=== PATIENT | male | born 1990 | race Caucasian/White ===

== ENCOUNTER 2024-11-23 13:54 | Emergency (ER) | payer MEDICAID ==
[~2024-11-23] VITALS: Ht 185.4 cm; Wt 90.0 kg
[2024-11-23 13:57] VITALS: O2SAT 99
[2024-11-23] MEDS: BACITRACIN ZINC OINT UDPKT TOP ONE (14:30)
[2024-11-23] MEDS: LIDOCAINE HCL/PF 1% 10 MG/ML 5ML VIAL INFIL ONE (14:30)
[2024-11-23] MEDS: HYDROCODONE/ACETAMINOPHEN 10/325MG TABLET PO ONE (14:38)
[2024-11-23] MEDS: TETANUS, DIPHTHERIA, PERTUSSIS VAC/PF 0.5ML (>10YR OLD) IM ONE (14:38)
[2024-11-23] MEDS ORDERED: IBUP-2030 MT (17:54)
[2024-11-23] MEDS ORDERED: BO1 TP (17:54)
[2024-11-23 18:21] VITALS: BP 140/88; PULSE 90; RESP 16; TEMP 37.2; O2SAT 99
== END 2024-11-23 18:25 ==
LOC: ER 13:54
DX: S01.312A Laceration without foreign body of left ear, initial encounter (principal); Z88.0 Allergy status to penicillin; X58.XXXA Exposure to other specified factors, initial encounter; Y93.89 Activity, other specified; Y92.89 Other specified places as the place of occurrence of the external cause; Y99.8 Other external cause status
CPT/HCPCS: 90715; 12013; 90471; 99283; J2003; Z7610